=== PATIENT | female | born 1980 | race Two or more races ===

== ENCOUNTER 2024-03-20 18:42 | Outpatient (REF) | payer BC, SELFPAY ==
--- OUTSIDE RECORDS SUMMARY | 2024-03-20 18:45 | XMS_ITS | Continuity of Care Document ---
Author Organization [facility] Address [address] [place] [address] Encounter [facility] Date(s): 11/19/22 - 11/19/22 [facility] [address] [place] [address] Discharge Disposition: Home or Self Care Attending Physician: Nicci Fbaian Admitting Physician: Nicci Fabian Results Laboratory List Name Date Comprehensive Metabolic Panel 11/19/22 D-Dimer 11/19/22 NT- Pro BNP 11/19/22 TSH w/ Rflx to Free T4 11/19/22 Most recent to oldest [Reference Range]: 1 BUN [7-18 mg/dL] 13 mg/dL (11/19/22 1:49 PM) Glucose Level [74-106 mg/dL] 93 mg/dL (11/19/22 1:49 PM) Potassium Level [3.5-5.1 mmol/L] 3.9 mmo l/L (11/19/22 1:49 PM) AST [15-37 unit/L] 24 unit/L (11/19/22 1:49 PM) ALT [14-59 unit/L] 46 unit/L (11/19/22 1:49 PM) Sodium Level [136-145 mmol/L] 139 mmol/L (11/19/22 1:49 PM) Calcium Level [8.5-10.1 mg/dL] 8.9 mg/dL (11/19/22 1:49 PM) Albumin Level [3.4-5.0 g/dL] 3.7 g/dL (11/19/22 1:49 PM) Protein Total [6.4-8.2 g/dL] 7.0 g/dL (11/19/22 1:49 PM) Bilirubin Total [0.2-1.0 mg/dL] 0.4 mg/d L (11/19/22 1:49 PM) Alk Phos [46-146 unit/L] 95 unit/L (11/19/22 1:49 PM) CO2 [21-32 mmol/L] 25 mmol/L (11/19/22 1:49 PM) TSH [0.358-3.740 mcIntlUnit/mL] 0.695 mc IntlUnit/mL (11/19/22 1:49 PM) eGFR Non-AA [>=60] 114 (11/19/22 1:49 PM) eGFR AA [>=60] 114 (11/19/22 1:49 PM) NT-proBNP [0-125 pg/mL] 74 pg/mL (11/19/22 1:49 PM) Chloride Level [98-107 mmol/L] 103 mmol/ L (11/19/22 1:49 PM) Creatinine Level [0.55-1.02 mg/dL] 0.60 mg/dL (11/19/22 1:49 PM) D Dimer, (Quant.) [0.00-0.50 mg/L] 0.27 mg/L 1 (11/19/22 1:49 PM) 1Interpretive Data: Exclusion of PE: Effective January 26, 2012 a new D-Dimer assay [AudioCaseFiles] is being implemented, this test has a new reference range <0.50 mg/L FEU. This assay was evaluated in a multi-center study to validate the exclusion of PE using fresh specimens collected from 701 consecutive patients presenting in the ED with suspected PE. Study patients were evaluated using the Wells' rules to estimate high, moderate or low probability of PE, a D-Dimer result of <0.50 mg/L FEU was considered negative and a D-Dimer result >/= 0.50 was considered positive for PE.
--- OUTSIDE RECORDS SUMMARY | 2024-03-20 18:45 | XMS_ITS | Continuity of Care Document ---
Author Organization [facility] Address [address] [place] [address] Encounter [facility] Date(s): 11/20/22 - 11/20/[address] [address] Discharge Disposition: Home or Self Care Attending Physician: Jenny Jackson PA-C Admitting Physician: Jenny Jackson PA-C Assessment and Plan Diagnostic Tests Pending * Throat Culture 11/20/22
--- OUTSIDE RECORDS SUMMARY | 2024-03-20 18:45 | XMS_ITS | Data Portability ---
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 No streaking or crepitus. On exam appears to be a dermatitis that got infected s/p skin barrier interruption from scratching. At this time recommend cephalexin for acute infection, in the future and for other lesions/itching begin triamcinolone, cetirizine at night before bed for itching. Attempt to look for triggers of dermatitis. FU with PCP or derm if sxs persist. RTC sooner for streaking/spread ing of rednes or puruelnt drainage, fever. She understands and agrees. Pt also with intertrigo underneath stomach pannus, begin clotrimazole cream BID, keep area dry, cotton clothing Monitor and seek additional medical care in the case of any redness, increased pain, swelling, discharge, fever, numbness or tingling. Pt understands and agrees. [email or web address] Not available 03/28/2023 08:31:39 10/26/2023 10/26/2023 The total time devoted to today's encounter, including both the uvbh-xz-jumz time with the patient and/or family/caregiver and evx-qqme-bv-face time I personally spent is 60 minutes. Not available 10/26/2023 13:31:52 01/23/2024 01/23/2024 Patient seen by myself and MEDIA MARKETING COORDINATOR Student Emely Harrell. I agree with documentation Not available 01/23/2024 16:56:53 03/20/2024 03/20/2024 The total time devoted to today's encounter, including both the yptw-yl-dsoz time with the patient and/or family/caregiver and fdx-szhr-qu-face time I personally spent is 30 minutes. Not available 03/20/2024 10:35:37 Plan of Treatment Reminders Order Date Submit Date Provider Last Modified By Organization Details Last Modified Time Details Appointments Follow Up 30 2023 08:30A M MIKAELAKEVIN RIOS Not available Not available Not available [place] [facility] 60 2023 04:00P M DALIA CARBALLO Not available Not available Not available Lab BMP, serum or plasma [address] [facility], [address], [place], [address], 03/20/2024 09:22:29 Referral nutrition ist/dieti jessica referral 2023 024 [facility] Piece Goods Clerk-Oswaldo Preciado, [address], [place], [address], 11/25/2023 09:53:36 Procedures None recorded. Surgeries None recorded. Imaging None recorded. Medication Orders clotrimaz ole 1 % topical cream 2022 023 [id number], [address], [facility] [address], [place], [id number], 03/26/2023 13:06:30 cephalexi n 500 mg capsule 2022 024 [facility], [address] [facility], [facility] [address], [place], [place], [id number], 08/01/2023 12:10:43 triamcino lone acetonide 0.1 % topical cream 2022 023 [facility] #63740, [address], [place], [place], [id number], 03/26/2023 13:06:31 cetirizin e 10 mg tablet 2022 024 [facility] #83970, [address], [address], [place], [place], [id number], 10/26/2023 09:15:37 amoxicill in 875 mg-potass ium clavulana te 125 mg tablet 2023 024 [email or web address] [facility] #29204, [address], [facility] [address], [place], [place], [id number], 10/26/2023 09:15:17 Wegovy 1 mg/0.5 mL subcutane ous pen injector 2023 024 [email or web address] [facility] #57259, [address], [address], [place], [place], [id number], 03/08/2024 11:38:50 Patient TargetsNo targets recorded. Patient Instructions Encounter Date Encounter Id Patient Instructions Last Modified By Organization Details Last Modified Time 10/26/2023 [id number] Please read the information about Wegovy, and the Zepbound if you decide you would like to try this medication, let me know and I will send in rx, you will need to make an appointment with katarzyna Buitrago for your first injection. Don't forget that life is complicated and that your health is multifactorial and affected by everything Watch your salt intake I think you are probably perimenopausal. Counseling is available with Mariel Carballo here at the clinic I referred you to nutrition, you should be hearing from [facility] to have that scheduled You will need a colonoscopy age 44 Follow up 3 months Not available 10/26/2023 10:08:08 01/23/2024 [id number] diet Not available 01/22 16:56:54 exercise Not available 2023 16:56:54 Try to reduce sa lt in your diet. Using compression stockings and elevating your feet is another way to manage the swelling in your legs. Please set up an appointment with Izzy Carballo regarding all the changes in your life and the relationships in your life. We are increasing your Ozempic to 1 mg weekly. Please let us know if you have any increased side effects or constipation on this dose. [email or web address] Not available 01/23/2024 14:44:23 03/20/2024 [id number] Continue for at least four weeks on the 1.7 mg mg Wegovy and if we don't see weight loss by then. Lets switch to zepbound. FInd a load tester and get pap done and ask about HRT or starting OCP. Can go to Dr. Gonzalez or Caren López or [facility] in [facility]. 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 [email or web address] Not Available 09:37:54 11/25/19 24 09/10/2021 MAMMO , felicia dexter, bilalyssa eral No observ ation record ed. [email or web address] Not Available 09:44:53 11/28/19 24 11/09/2023 mg mammo lourdes felicia dexter bilat -M2 HISTOR Y: Suzy cochran is 43 years old and is being seen for screen ing. The suzy cochran has no person al histor y of cancer . The suzy cochran has the follow ing family histor y of breast cancer : grandm other, breast cancer . FILMS COMPAR ED: The presen t examin ation has been compar ed to a prior imagin g study perfor med at [facility] on [facility]. MAMMOG DARLENE FINDIN GS: The follow ing mammog raphic views were obtain ed: bilate ral cranio caudal , bilate ral cranio caudal with tomosy nthesi s, bilate ral mediol ateral obliqu e, bilate ral mediol ateral obliqu e with tomosy nthesi s. There are scatte red fibrog landul ar densit ies. There is an asymme tric densit y seen in the MLO view only seen in the superi or left breast . In the right breast , no suspic ious masses , calcif icatio ns or other abnorm alitie s are seen. IMPRES KWAN: Asymme tric densit y in the left breast requir es additi onal evalua tion. Additi onal projec tions (left mediol ateral obliqu e spot compre ssion with tomosy nthesi s and left 90 degree mediol ateral spot compre ssion with tomosy nthesi s) are recomm ended. BI-RAD S CATEGO RY: 0 Need additi onal imagin g evalua tion. This examin ation underw ent CAD evalua tion utiliz ing R2 Versio n 2.4.0. 12. Report Signed by: TREVOR DAHL M.D. on 2023 16:15: [address], [place], [address], 11/29/2023 16:39:02 12/02/19 24 12/02/2023 MAMMO , diagn ostic , tomos ynthe sis, unila teral HISTOR Y: Suzy cochran is 43 years old and is being seen for follow -up at short- interv al from prior study and abnorm al mammog raphic findin g in the left breast . The suzy t has no person al histor y of cancer . The patien t has the follow ing family histor y of breast cancer : grandm other, breast cancer . FILMS COMPAR ED: The presen t examin ation has been compar ed to prior imagin g [facility]ie [facility] and at [facility] on 2021. MAMMOG DARLENE FINDIN GS: The follow ing mammog raphic views were obtain ed: left cranio caudal , left mediol ateral obliqu e, left mediol ateral obliqu e spot compre ssion with tomosy nthesi s, and left 90 degree mediol ateral spot compre ssion with tomosy nthesi s. There are scatte red fibrog landul ar densit ies. Additi onal evalua tion was perfor med for the asymme tric densit y in the left breast , superi or seen on 2023. No suspic ious masses , calcif icatio ns or other abnorm alitie s are seen. The questi oned findin g desupe rimpos es with additi onal views IMPRES KWAN: There is no mammog raphic eviden ce of malign devaughn. Routin e follow -up mammog darlene in 1 year is recomm ended. BI-RAD S CATEGO RY: 1 Negati ve This examin ation underw ent CAD evalua tion, utiliz ing R2 versio n 2.4.0. 12. Report Signed by: TREVOR DAHL M.D. on 2023 15:28: 12 [email or web address] [facility] [address], [place], [address], 12/09/2023 15:38:58 Result Notes Documentation Provider Name and Address Organization Details Recorded Time Mammo, Diagnostic, Tomosynthesis, Unilateral : HISTORY: Patient is 43 years old and is being seen for follow-up at short-interval from prior study and abnormal mammographic finding in the left breast. The patient has no personal history of cancer. The patient has the following family history of breast cancer: grandmother, breast cancer. FILMS COMPARED: The present examination has been compared to prior imaging studies performed at [facility] on 11/09/2023, and at [facility] on 09/10/2021. MAMMOGRAM FINDINGS: The following mammographic views were obtained: left craniocaudal, left mediolateral oblique, left mediolateral oblique spot compression with tomosynthesis, and left 90 degree mediolateral spot compression with tomosynthesis. There are scattered fibroglandular densities. Additional evaluation was performed for the asymmetric density in the left breast, superior seen on 11/09/2023. No suspicious masses, calcifications or other abnormalities are seen. The questioned finding desuperimposes with additional views IMPRESSION: There is no mammographic evidence of malignancy. Routine follow-up mammogram in 1 year is recommended. BI-RADS CATEGORY: 1 Negative This examination underwent CAD evaluation, utilizing R2 version 2.4.0.12. Report Signed by: TREVOR DAHL M.D. on 12/02/2023 15:28:12 LEXX olsen, [facility] 12/09/2023 15:38:58 Problems Name Problem SNOMED Code Status Onset Date Resolution Date Notes Provider Name and Address Organization Details Recorded Time Edema 107332123 Active 2022 Problem Code: R60.9; Problem Code Type: ICD-10; Not Available [facility] 3 06:00:33 Contact dermatit is caused by plants Active 2022 Problem Code: L25.5; Problem Code Type: ICD-10; Not Available [facility] 3 06:00:33 Acute pharyngi tis 738682412 Completed 202211/27/2022 Problem Code: J02.9; Problem Code Type: ICD-10; Not Available [facility] 3 06:00:33 Attentio n deficit hyperact ivity disorder 366326499 Active 2023 TIFFANIE WATKINS MA null, [facility] 4 08:00:23 Obesity 351044720 Active [address], [place], [address] , [facility] 4 09:57:54 Irregula r periods 59758136 Active [address], [place], [address] , [facility] 09:58:37 Asymmetr ic breast tissue 751134129 Active [address], [place], [address] , [facility] 16:39:27 Hyperten sive disorder 02158531 Active [address], [place], [address] , [facility] 16:53:07 Pain of bilatera l knee joints 02225951434 4104 Active [address], [place], [address] , [facility] 16:53:07 Edema of lower extremit y 296112171 Active [address], [place], [address] , [facility] 16:53:07 Problem Notes None recorded. Procedures Surgical History None recorded. Imaging Results Imaging Date Name Status LastModified by Organiz ation Details LastModified Time 01/18/2019 US, doppler, venous completed Information not available 11/25/2023 09:37:54 09/10/2021 MAMMO, screening, bilateral completed Information not available 11/25/2023 09:44:53 11/09/2023 mg mammo lourdes screening bilat-M2 completed [facility] [address], [place], [address], 11/29/2023 16:39:02 12/02/2023 MAMMO, diagnostic, tomosynthesis, unilateral completed [email or web address] [facility] [address], [place], [address], 12/09/2023 15:38:58 Procedure Notes None recorded. Medical Equipment None Reported. Allergies No known drug allergies Medications Name Sig Start Date Stop Date Status Note LastModified by Organization Details LastModified Time cetirizin e 10 mg tablet Take 1 tablet every day by oral route at bedtime for 30 days. 10/25 completed pt reports not taking Not Available Not Available Not Available chlorthal idone 25 mg tablet TAKE 1 TABLET BY MOUTH DAILY active Not Available Not Available No t Available triamcino lone acetonide 0.1 % topical cream APPLY TO THE AFFECTED AREA TWICE A DAY active Not Available Not Available No t Available cephalexi n 500 mg capsule Take 1 capsule every 6 hours by oral route for 7 days. 07/31 completed Not Available Not Available Not Available hydrochlo rothiazid e 25 mg tablet TAKE 1 TABLET BY MOUTH EVERY DAY FOR BLOOD PRESSURE OR SWELLING . 10/25 completed pt reports not taking Not Available Not Available Not Available clotrimaz ole 1 % topical cream APPLY TOPICALL Y TO THE AFFECTED AND SURROUND ING AREAS TWICE DAILY IN THE MORNING AND IN THE EVENING active Not Available Not Available No t Available amoxicill in 875 mg-potass ium clavulana te 125 mg tablet TAKE 1 TABLET BY MOUTH EVERY 12 HOURS FOR 10 DAYS active Not Available Not Available No t Available nitrofura ntoin monohydra te/macroc rystals 100 mg capsule TAKE 1 CAPSULE BY MOUTH TWICE DAILY FOR 7 DAYS 01/22 completed pt reports not taking Not Available Not Available Not Available TechLITE Pen Needle 31 gauge x 09/21 USE 1 PEN NEEDLE ONCE A WEEK WITH WEGOVY active Not Available Not Available No t Available Wegovy 1.7 mg/0.75 mL subcutane ous pen injector INJECT 1.7MG SUBCUTAN EOUSLY EVERY WEEK DIRECTED active Not Available Not Available No t Available Wegovy 1 mg/0.5 mL subcutane ous pen injector INJECT 1 MG UNDER THE SKIN WEEKLY 03/20 completed dose increase Not Available Not Available Not Available Wegovy 0.25 mg/0.5 mL subcutane ous pen injector ADMINIST ER 0.25 MG UNDER THE SKIN WEEKLY FOR 4 WEEKS. INCREASE TO 0.5 MG WEEKLY 12/20 completed went up to next dose Not Available Not Available Not Available Wegovy 0.5 mg/0.5 mL subcutane ous pen injector ADMINIST ER 0.5 MG UNDER THE SKIN 1 TIME WEEKLY 03/20 completed dose increase Not Available Not Available Not Available Vitals Date Recorded Body temperature Oxygen saturation Oxygen saturation in Arterial blood by Pulse oximetry Heart rate Respiratory rate Systolic blood pressure Diastolic blood pressure Provider Name and Address Organization Details Last Updated DateTime 3 97.4 [degF] 98 % 98 % 60 /min 16 /min 110 mm[Hg] 60 mm[Hg] [address], [place], [address], [facility], [facility] 3 12:53:11 Date Recorded Body temperature Body height Oxygen saturation Oxygen saturation in Arterial blood by Pulse oximetry Heart rate Systolic blood pressure Diastolic blood pressure Provider Name and Address Organization Details Last Updated DateTime 4 98.1 [degF] 162.56 cm 100 % 100 % 82 /min 114 mm[Hg] 78 mm[Hg] JAMISON Monsalve MA [facility] 4 12:08:50 Date Recorded Body height Body mass index (BMI) Body weight Oxygen saturation Oxygen saturation in Arterial blood by Pulse oximetry Heart rate Systolic blood pressure Diastolic blood pressure Provider Name and Address Organization Details Last Updated DateTime 4 165.61 cm 40.4 kg/m2 983077. 98 g 95 % 95 % 80 /min 116 mm[Hg] 72 mm[Hg] TIFFANIE WATKINS MA [facility], [facility] 4 09:14:53 Date Recorded Body height Body mass index (BMI) Body weight Oxygen saturation Oxygen saturation in Arterial blood by Pulse oximetry Heart rate Systolic blood pressure Diastolic blood pressure Provider Name and Address Organization Details Last Updated DateTime 4 165.61 cm 38.3 kg/m2 418557. 99 g 95 % 95 % 90 /min 114 mm[Hg] 64 mm[Hg] TIFFANIE WATKINS MA [facility], [facility] 4 14:10:35 Date Recorded Body height Body mass index (BMI) Body weight Oxygen saturation Oxygen saturation in Arterial blood by Pulse oximetry Heart rate Systolic blood pressure Diastolic blood pressure Provider Name and Address Organization Details Last Updated DateTime 4 165.61 cm 38.1 kg/m2 244107. 35 g 95 % 95 % 84 /min 132 mm[Hg] 74 mm[Hg] YEIMI CONTRERAS RN [facility] 08:35:48 Social History Question Answer Notes LastModified by Organizat ion Details LastModified Time Tobacco Smoking Status Former Smoker STARLA HOLLIS, [facility] 10/26/2023 09:16:06 What Type Of Diet Are You Following? 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 7 Information not available 11/03/2023 How Many Times Per Week Do You Exercise? 5-7 Times Per Week Information not available 11/03/2023 When Did You Quit Smoking? 15+yearssin james holman [email or web address] Information not available 10/26/2023 Date Care Plan Printed: 11/03/2023 Information not available 11/15/2023 Assigned Communications Officer: Viola Buitrago Information not available 11/03/2023 Is [facility] The Lead Communications Officer? Yes Information not available 11/03/2023 Level Of Intensity: Bi-Annually Information not available 11/03/2023 Team Based Care: Yes Information not available 11/03/2023 Providers Yes Information no t available 11/03/2023 Other Support System Yes Community Health Team; Injection Support Team Information not available 11/03/2023 How Much Tobacco Do You Smoke? 1 PPW Information not available 10/26/2023 How Many Years Have You Smoked Tobacco? 2 [email or web address] Information not available 10/26/2023 Do You Have Any Dietary Restrictions ? No Information not available 11/03/2023 Sex: Female Functional Status Question Answer Note LastModified by Organization D etails LastModified Time What is your exercise level? Moderate Information not available 11/03/2023 Mental Status None recorded. Family History Nothing Reported. Medical History No medical history recorded. Gynecological HistoryNo gynecological history recorded. Obstetrics History GPAL:G 0 P 0 0 0 0 Past Encounters Encounter ID Performer Location Encounter Start Date Encounter Closed Date Diagnosis/Indication Diagnosis SNOMED-CT Code Diagnosis ICD10 Code [id number] Heather Schultz PA-C [address] [address] 03/26/2023 11:52:35 03/26/2023 13:08:50 Cellulitis of lower limb 717926454 L03.119 Atopic dermatitis 320210 01 L20.9 Intertrigo 47147746 L30. 4 [id number] IVY MONDRAGON PA-C [address] [address] 08/01/2023 11:53:46 08/01/2023 12:33:44 Acute sinusitis 81415352 J01.[id number] [address] 10/26/2023 09:00:04 10/26/2023 10:45:51 Obesity 208678070 E66.9 Irregular periods 343515 07 N92.6 Edema 605914809 R60.9 Attention deficit hyperactivity disorder 862392465 F90.[id number] [address] 01/23/2024 14:04:13 01/23/2024 14:50:55 Attention deficit hyperactivity disorder 779785204 F90.9 Obesity 532369463 E66.9 Perimenopausal state 839 5417482 18798 Z78.0 Edema of l ower extremity 299887878 R60.0 Hypertensive disorder 38 117992 I10 Relationship problem 160 654943 Z63.9 Pain of bi lateral knee joints 7173225394 09504 M25.[id number] [place] [address] 03/20/2024 08:28:38 03/20/2024 10:26:49 Attention deficit hyperactivity disorder 386076517 F90.9 Obesity 120395728 E66.9 Active or passive immunization 402585567 Z23 Hypertensive disorder 38 676057 I10 Perimenopausal state 336 2807178 43893 Z78.0 Goals Section Goal Description Status Start Date LastModified by Organization Details LastModified Time Weight Loss Decreases body weight as per care team recommendatio n(s): Lose 5-7% Weight with Diet, Activity, & Medication. Starting Weight is 244# - Short Term Lose 12-15 pounds in 3 months (January 2024). - Long-Term: Lose 45 pound (Be Less than 200#; No date set) Goal not achieved 024 VIOLA BLINDOW Information not available 01/17/2024 20:07:33 Medication Regimen Follows medication regimen as per care team recommendatio n(s) Goal not achieved 024 VIOLA BLINDOW Information not available 01/17/2024 20:08:57 Health Concerns Section Related Observation LastModified by Organization Detai ls LastModified Time None Recorded Concern Status LastModified by Organization Details LastModified Time Obesity Active VIOLA BLINDOW Not Available 11/02 19:30:03 Advance Directives Directive None Recorded Payers Encounter Date Sequence Insurance Name Policy Number Policy Causey Covered Member ID Causey Member ID Guarantor Name 03/26/2023 2 [place] Nicci Saenz Janay [id number] Nicci Letty Koss 08/01/2023 1 [place] Nicci Saenz Manuels [id number] Nicci S Koss 10/26/2023 1 [place] Nicci Saenz Koss [id number] Nicci S Koss 01/23/2024 1 [place] Nicci Saezn Koss [id number] Nicci S Koss 03/20/2024 1 [place] Nicci Gustafson [id number] Nicci Gustafson Notes Date Note Type Note Provider Name and Address Organization Details Recorded Time 03/26/2023 text/html HPI Notes: Pt is a 42 y/o F with 1 week of worsening rash on her lower right anterior leg that started out as red and itchy for about 8 weeks, is now hot, red, painful, hard. She denies any discharge or injury to the area. States there are with similar spot on her leg that appears and have skin bubbling but are not as bad as this one. Also complaining of red rash under stomach that is itchy. Heather Schultz PA-C [address], [place], [address], [facility]. 03/28/2023 08:31:44 08/01/2023 text/html HPI Notes: Kris loera is a 43-year-old female presenting for question of sinus infection. For the past 3 weeks has had left-sided is sinus pain and congestion. Has had a runny nose. Sinus pain with associated headache. Symptoms wax and wane in intensity, very uncomfortable 2 days ago slightly better yesterday and then back today. No fevers or chills. No coughing or wheezing. Denies sore throat. No known sick contacts. No history of frequent sinus infections. IVY MONDRAGON PA-C [address], [place], [address], [facility]. 08/01/2023 12:29:10 10/26/2023 text/html HPI Notes: cc ne w patient Lives in [place], has two pigs, chickens, ducks, turkey. 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 had vasectomy. Is feeling more pessimistic over the past two years. Feels anxious, has financial concerns Weight gain - has gained about 50 pounds in the past year. Dr. Hammond checked her Thyroid on October 12 knee pain and leg swelling - both knees terrible with driving. Has to support her legs when she is driving just 25 miles. No trauma, has pain going down stairs in the morning. rash - recurrent on her lower leg. Dr. Hammond diagnosed her with HTN and started Chlorthalidone which she stopped taking a couple of weeks ago. Was tested for diabetes and blood clots which were negative Gets shoulder and neck pain. Does a lot of heavy lifting of pets/feed/slop. MIKAELA RIOS, MEDIA MARKETING COORDINATOR [address], [place], [address], [facility]. 10/27/2023 15:00:26 01/23/2024 text/html HPI Notes: cc: obesity, ADHD, HTN, perimenopausal state, edema of lower extremity, and relationship issues. HTN: Continues on chlorthalidone 25 mg each day. Blood pressure is well controlled LE swelling: Swelling is the same, has not improved. Likes to eat salt, she doesn't salt food at the table, but likes to cook with salt. She is not using compression stockings. 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 Perimenopausal: She recently went 48 days without a period. Last summer her cycle was 31-35 days. Then over the winter she was having a cycle every 28 days. Having occasional hot flashes, but has often felt warm throughout her life. Relationship issues. Many changes in her life including an empty nest, moving to [place], and having difficulty connecting with . Obesity Is using Wegovy at this time for weight loss. Has lost 14 pounds on the Wegovy; now on the 0.5 mg weekly dosage. ADHD Not on any medications for ADHD. Has used Strattera and Vyvanse in the past. Not interested in starting medication management at this time Knee pain. Knee pain is improving with weight loss. Pain on the inside part of her knees, sometimes knees are painful to touch. She had been told that she had bursitis in the past . Emely olsen, [facility], [facility]. 01/23/2024 16:58:26 03/20/2024 text/html HPI Notes: ADHD Reported by patient. Notes: Overall doing ok, school is great. Never connected with Mariel and isn't sure how that would work during her school day, would consider seeing her this summer Overweight/Obese Reported by patient. Notes: Continues on Wegovy, now on 1.7 mg weekly. No nausea, no constipation, moves bowels daily. No belly pain. Feels like her belly is just big, has had no additional significant weight loss cc follow up chronic issues, Obesity, Edema, adhd Things are going ok. Edema - continues to have intermittent edema, has gone up a shoe size. Knee pain is better HTN - continues on chlorthalidone, due for bmp Perimenopause - decreased libido, due for PAP this year, has a 39- 45 day cycle, not super heavy. feels her weight gain is worst around her middle. MIKAELA RIOS, MEDIA MARKETING COORDINATOR [address], [place], [address], [facility], [facility]. 03/20/2024 10:35:52 OBGyn Episode No OBEpisode recorded.
--- OUTSIDE RECORDS SUMMARY | 2024-03-20 18:45 | XMS_ITS | Continuity of Care Document ---
Author Organization [facility] Address [address] [place] [address] Care Team Providers Care Adoption Coordinator Name Role Phone Ronnelljj Mikaela H Primary Care Physician [phone] Encounter [place] Date(s): 11/09/23 - 11/09/[address] [address] [place] Encounter Diagnosis Screening for breast cancer(Discharge Diagnosis) - 11/09/23 Discharge Disposition: Home or Self Care Attending Physician: Sameera Hammond MD Admitting Physician: Sameera Hammond MD Referring Physician: Sameera Hammond MD Assessment and Plan Future Appointments Future Scheduled Tests Laboratory* Urinalysis Notify Lab 09/13/23 Medications amoxicillin-clavulanate 875 mg-125 mg oral tablet 0 Refill(s), 0 Refill(s) Start Date: 07/31/23 Status: Ordered cephalexin 500 mg oral capsule 0 Refill(s), 0 Refill(s) Start Date: 03/25/23 Status: Ordered cetirizine 10 mg oral tablet 0 Refill(s), 0 Refill(s) Start Date: 03/25/23 Status: Ordered chlorthalidone 25 mg oral tablet 25 mg = 1 tab, Oral, Daily, # 90 tab, 3 Refill(s), Pharmacy: [facility] #[id number], 165.1, cm, 09/26/23 12:01:00 EDT, Height, 113.85, kg, 09/26/23 12:17:00 EDT, Weight Dosing Start Date: 09/26/23 Status: Ordered clotrimazole 1% topical cream 0 Refill(s), 0 Refill(s) Start Date: 03/25/23 Status: Ordered hydroCHLOROthiazide 25 mg oral tablet 0 Refill(s), 0 Refill(s) Start Date: 11/18/22 Status: Ordered Macrobid 100 mg oral capsule 100 mg = 1 cap, Oral, BID, # 14 cap, 0 Refill(s), Pharmacy: [facility] #[id number], 114.4, kg,09/13/23 15:23:00 EDT, Weight Dosing Start Date: 09/13/23 Stop Date: 09/20/23 Status: Ordered triamcinolone 0.1% topical cream 0 Refill(s), 0 Refill(s) Start Date: 03/25/23 Status: Ordered triamcinolone 0.1% topical cream 1 era, Topical, BID, # 454 g, 3 Refill(s), Pharmacy: [facility] #[id number], 165.1, cm, 09/26/23 12:01:00 EDT, Height, 113.85, kg, 09/26/23 12:17:00 EDT, Weight Dosing Start Date: 09/26/23 Status: Ordered Problem List Condition Confirmation Course Effective Dates Status Health St atus Informant Acute pharyngitis 1 Confirmed 11/20/22 Active Contact dermatitis caused by plants 2 Confirmed 11/19/22 Active Edema 3 Confirmed 11/19/22 Active Annual physical exam Confirmed Active 1Outside Source Comment: Problem Code: J02.9; Problem Code Type: ICD-10; 2Outside Source Comment: Problem Code: L25.5; Problem Code Type: ICD-10; 3Outside Source Comment: Problem Code: R60.9; Problem Code Type: ICD-10; Procedures Procedure Date Related Diagnosis Body Site Status Mammogram 09/05/21 Completed Social History Social History Type Response Tobacco Former tobacco user Tobacco Use:. 1 Sex 1quit 1998 Patient Care team information Care Team Personnel Name: Mikaela Rios RUBBER MOULDING MACHINE OPERATOR Position: PowerChart View Only Member Role: Primary Care Physician Address: Address: [address] [place] [address] [place] Name: Jenny Jackson PA-C Position: No Access Member Role: Informed Provider Address: Address: [address] [place] [address] [place] Care Team Related Persons Name: MELANIE MATHIAS Name: HATTIE VELAZQUEZ Address: Home [address] [place], [place] [phone] Name: ATTILA DEL ROSARIO Address: Home [address] [place] [phone]
--- OUTSIDE RECORDS SUMMARY | 2024-03-20 18:45 | XMS_ITS | Continuity of Care Document ---
Author Organization [facility] Address [address] [place] [address] Care Team Providers Care Foreign Policy Officer Name Role Phone Sameera Hammond Primary Care Physician Encounter [place] Date(s): 09/26/23 - 09/26/23 [facility] [address] [place] [address] Discharge Disposition: Home Assessment and Plan Future Appointments Future Scheduled Tests Laboratory* Urinalysis Notify Lab 09/13/23 Radiology* MG Mammo Screening Bilateral w/ Victoriano 09/26/23 Medications amoxicillin-clavulanate 875 mg-125 mg oral tablet 0 Refill(s), 0 Refill(s) Start Date: 07/31/23 Status: Ordered cephalexin 500 mg oral capsule 0 Refill(s), 0 Refill(s) Start Date: 03/25/23 Status: Ordered cetirizine 10 mg oral tablet 0 Refill(s), 0 Refill(s) Start Date: 03/25/23 Status: Ordered chlorthalidone 25 mg oral tablet 25 mg = 1 tab, Oral, Daily, # 90 tab, 3 Refill(s), Pharmacy: [facility] #[id number], 165.1, cm, 09/26/23 12:01:00 EDT, Height, 113.85, kg, 09/26/23 12:17:00 EDT, Weight Dosing Start Date: 09/26/23 Status: Ordered clotrimazole 1% topical cream 0 Refill(s), 0 Refill(s) Start Date: 03/25/23 Status: Ordered hydroCHLOROthiazide 25 mg oral tablet 0 Refill(s), 0 Refill(s) Start Date: 11/18/22 Status: Ordered Macrobid 100 mg oral capsule 100 mg = 1 cap, Oral, BID, # 14 cap, 0 Refill(s), Pharmacy: [facility] #[id number], 114.4, kg,09/13/23 15:23:00 EDT, Weight Dosing Start Date: 09/13/23 Stop Date: 09/20/23 Status: Ordered triamcinolone 0.1% topical cream 0 Refill(s), 0 Refill(s) Start Date: 03/25/23 Status: Ordered triamcinolone 0.1% topical cream 1 era, Topical, BID, # 454 g, 3 Refill(s), Pharmacy: [facility] #[id number], 165.1, cm, 09/26/23 12:01:00 EDT, Height, 113.85, [...] Care team information Care Team Personnel Name: Sameera Hammond MD Position: Physician Member Role: Primary Care Physician Address: Address: [address] [address] Name: Jenny Jackson PA-C Position: No Access Member Role: Informed Provider Address: Address: [address] [place] [address] Care Team Related Persons Name: MELANIE MATHIAS Name: HATTIE VELAZQUEZ Address: Home [address] [place], [place] [phone] Name: ATTILA DEL ROSARIO Address: Home [address] [place] [phone]
--- OUTSIDE RECORDS SUMMARY | 2024-03-20 18:45 | XMS_ITS | Continuity of Care Document ---
Author Organization [facility] Address [address] [place] [address] Care Team Providers Care Branch Operations Coordinator Name Role Phone Mikaela Rios Primary Care Physician Encounter [place] Date(s): 12/02/23 - 12/02/[address] [address] [place] Encounter Diagnosis Breast density(Discharge Diagnosis) - 12/02/23 Discharge Disposition: Home or Self Care Attending Physician: Sameera Hammond MD Admitting Physician: Sameera Hammond MD Referring Physician: Sameera Hammond MD Assessment and Plan Future Scheduled Tests Laboratory* Urinalysis Notify Lab [...] Daily, # 90 tab, 3 Refill(s), Pharmacy: [facility] #[id number], 165.1, cm, 09/26/23 12:01:00 EDT, Height, 113.85, kg, 09/26/23 12:17:00 EDT, Weight Dosing Start Date: 09/26/23 Status: Ordered clotrimazole 1% topical cream 0 Refill(s), 0 Refill(s) Start Date: 03/25/23 Status: Ordered hydroCHLOROthiazide 25 mg oral tablet 0 Refill(s), 0 Refill(s) Start Date: 11/18/22 Status: Ordered Macrobid 100 mg oral capsule 100 mg = 1 cap, Oral, BID, # 14 cap, 0 Refill(s), Pharmacy: [facility] #[id number], 114.4, kg,09/13/23 15:23:00 EDT, Weight Dosing Start Date: 09/13/23 Stop Date: 09/20/23 Status: Ordered triamcinolone 0.1% topical cream 0 Refill(s), 0 Refill(s) Start Date: 03/25/23 Status: Ordered triamcinolone 0.1% topical cream 1 era, Topical, BID, # 454 g, 3 Refill(s), Pharmacy: [facility] #[id number], 165.1, cm, 09/26/23 12:01:00 EDT, Height, 113.85, [...] information Care Team Personnel Name: Mikaela Rios WALLPAPER CLEANER Position: PowerChart View Only Member Role: Primary Care Physician Address: Address: [address] [place] [address] Name: Jenny Jackson PA-C Position: No Access Member Role: Informed Provider Address: Address: [address] [place] [address] Care Team Related Persons Name: MELANIE MATHIAS Name: HATTIE VELAZQUEZ Address: Home [address] [place], [place] [phone] Name: ATTILA DEL ROSARIO Address: Home [address] [place] [phone]
--- OUTSIDE RECORDS SUMMARY | 2024-03-20 18:45 | XMS_ITS | Continuity of Care Document ---
Author Organization [place] [facility] Address [address] [place] [address] Care Team Providers Care Facility Engineer Name Role Phone TOÑO DIEHL Primary Care Provider BUITRAGO KATHLEEN Head Librarian [facility] DIVER-CAMILLE MACK Slip Sheeter/Nutritioni st Assessment Encounter Date Assessment Date Assessment LastModified by Organization Details LastModified Time 03/20/2024 03/20/2024 The total time devoted to today's encounter, including both the ekqq-ht-kmvl time with the patient and/or family/caregi yuly and zoi-vyuc-jm-f amy time I personally spent is 30 minutes. Not available 03/20/2024 10:35:37 Plan of Treatment Reminders Order Date Submit Date Provider Last Modified By Organization Details Last Modified Time Details Appointments Follow Up 30 2023 08:30A M TOÑO DIEHL Not available Not available Not available Counselin g 60 2023 04:00P M DALIA CARBALLO Not available Not available Not available Lab BMP, serum or plasma 2023 024 [facility], [address], [place], [address], 03/20/2024 09:22:29 Referral None recorded. Procedures None recorded. Surgeries None recorded. Imaging None recorded. Medication Orders None recorded. Patient TargetsNo targets recorded. Patient Instructions Encounter Date Encounter Id Patient Instructions Last Modified By Organization Details Last Modified Time 03/20/2024 [id number] Continue for at least four weeks on the 1.7 mg mg Wegovy and if we don't see weight loss by then. Lets switch to zepbound. FInd a grooming salon manager and get pap done and ask about HRT or starting OCP. Can go to Dr. Gonzalez or Caren López or [facility] in [facility]. I will send you a letter with the results of your lab work Not available 03/20/2024 08:56:28 Reason for Referral None Reported. Problems Name Problem SNOMED Code Status Onset Date Resolution Date Notes Provider Name and Address Organization Details Recorded Time Edema 382936208 Active 2022 Problem Code: R60.9; Problem Code Type: ICD-10; Not Available [facility] 3 06:00:33 Contact dermatit is caused by plants Active 2022 Problem Code: L25.5; Problem Code Type: ICD-10; Not Available [facility] 3 06:00:33 Acute pharyngi tis 165675879 Completed 202211/27/2022 Problem Code: J02.9; Problem Code Type: ICD-10; Not Available [facility] 3 06:00:33 Attentio n deficit hyperact ivity disorder 650262279 Active 2023 TIFFANIE WATKINS MA [facility], [facility] 4 08:00:23 Obesity 264567534 Active 2023 [facility] [address], [place], [address] , [facility] 4 09:57:54 Irregula r periods 97536019 Active 2023 [facility] [address], [place], [address] , [facility] 4 09:58:37 Asymmetr ic breast tissue 003631408 Active [address], [facility] [address] , [facility] 4 16:39:27 Hyperten sive disorder 02902229 Active [address], [place], [address] , [facility] 4 16:53:07 Pain of bilatera l knee joints 00285773562 4104 Active [address], [place], [address] , [facility] 4 16:53:07 Edema of lower extremit y 171273138 Active [address], [place], [address] , [facility] 4 16:53:07 Problem Notes None recorded. Medical Equipment None Reported. [...] Available Not Available Vitals Date Recorded Body height Body mass index (BMI) Body weight Oxygen saturation Oxygen saturation in Arterial blood by Pulse oximetry Heart rate Systolic blood pressure Diastolic blood pressure Provider Name and Address Organization Details Last Updated DateTime 4 165.61 cm 38.1 kg/m2 503823. 35 g 95 % 95 % 84 /min 132 mm[Hg] 74 mm[Hg] YEIMI CONTRERAS RN [facility] 08:35:48 Social History Question Answer Notes LastModified by Organizat ion Details LastModified Time Tobacco Smoking Status Former Smoker STARLA HOLLIS, [facility] 10/26/2023 09:16:06 What Type Of Diet Are You Following? REGULAR Following Slip Sheeter's Recommendation With Goal Of Weight Loss Information [...] Did You Quit Smoking? 15+yearssin james holman [id number] Information not available 10/26/2023 Date Care Plan Printed: 11/03/2023 Information not available 11/15/2023 Assigned Exhibition Carver: Viola Buitrago Information not available 11/03/2023 [facility] The Lead Exhibition Carver? Yes Information not available 11/03/2023 Level Of Intensity: Bi-Annually Information not available 11/03/2023 Team Based Care: Yes Information not available 11/03/2023 Providers Yes Information no t available 11/03/2023 Other Support System Yes Community Health Team; Injection Support Team Information not available 11/03/2023 How Much Tobacco Do You Smoke? 1 PPW [id number] Information not available 10/26/2023 How Many Years Have You Smoked Tobacco? 2 [email or web address] Information not available 10/26/2023 Do You Have [...] Diagnosis/Indication Diagnosis SNOMED-CT Code Diagnosis ICD10 Code [id number] TOÑO DIEHL [address] [address] 03/20/2024 08:28:38 03/20/2024 10:26:49 Attention deficit hyperactivity disorder 506594377 F90.9 Obesity 564569235 E66.9 Active or passive immunization 299883810 Z23 Hypertensive disorder 38 520056 I10 Perimenopausal state 988 1332801 86290 Z78.0 Goals Section Goal Description Status Start Date LastModified by Organization Details LastModified Time Weight Loss Decreases body weight as per care team recommendatio n(s): Lose 5-7% Weight with Diet, Activity, & Medication. Starting Weight is 244# - Short Term Lose 12-15 pounds in 3 months (January 2024). - Long-Term: Lose 45 pound (Be Less than 200#; No date set) Goal not achieved VIOLA BLINDOW Information not available 01/17/2024 20:07:33 Medication Regimen Follows medication regimen as per care team recommendatio n(s) Goal not achieved 024 VIOLA BLINDOW Information not available 01/17/2024 20:08:57 Health Concerns Section Related Observation LastModified by Organization Detai ls LastModified Time None Recorded Concern Status LastModified by Organization Details LastModified Time Obesity Active VIOLA BLINDOW Not Available 11/02 19:30:03 Payers Encounter Date Sequence Insurance Name Policy Number Policy Causey Covered Member ID Causey Member ID Guarantor Name 03/20/2024 1 [place] STANDARD [place] (EPO) Nicci Jacksonprince [id number] Nicci Prince Janay Notes Date Note Type Note Provider Name and Address Organization Details Recorded Time 03/20/2024 text/html HPI Notes: ADHD Reported by [...] weight gain is worst around her middle. TOÑO DIEHL, [facility] [address], [place], [address], [facility]. 03/20/2024 10:35:52 OBGyn Episode No OBEpisode recorded.
--- OUTSIDE RECORDS SUMMARY | 2024-03-20 18:45 | XMS_ITS | Continuity of Care Document ---
Author Organization [facility] Address [address] [place] [address] Care Team Providers Care Supervisor Pipe Finishing Name Role Phone StephanySameera maher Primary Care Physician Encounter [place]CT[place] Date(s): 09/13/23 - 09/13/23 [facility] [address] [place] [address] Discharge Disposition: Home or Self Care Attending Physician: Leandro Crowe Admitting Physician: Leandro Crowe Assessment and Plan Future Appointments Diagnostic Tests Pending * Urinalysis Notify Lab 09/13/23 Future Scheduled Tests Laboratory* Urinalysis Notify Lab 09/13/23 Medications Macrobid 100 mg oral capsule 100 mg = 1 cap, Oral, BID, # 14 cap, 0 Refill(s), Pharmacy: [facility] #[id number], 114.4, kg,09/13/23 15:23:00 EDT, Weight Dosing Start Date: 09/13/23 Stop Date: 09/20/23 Status: Ordered Results Laboratory List Name Date .Urinalysis POCT 09/13/23 Urinalysis Microscopic 09/13/23 Most recent to oldest [Reference Range]: 1 UA WBC [0-3] >100 *ABN* (09/13/23 3:23 PM) UA RBC [0-2] 5-10 (09/13/23 3:23 PM) UA Bacteria Moderate /HPF *ABN* (09/13/23 3:23 PM) UA Mucous None Seen /HPF (09/13/23 3:23 PM) UA Squam Epithelial [None Seen] Rare (09/13/23 3:23 PM) UA Culture Ind?. Indicated (09/13/23 3:23 PM) Method of Collect POC Clean Catch *NA* (09/13/23 3:23 PM) Specific [place], Ur POC 1.020 *NA* (09/13/23 3:23 PM) Specimen Color POC Maria A *NA* (09/13/23 3:23 PM) Glucose, Urine POC [Negative] Trace *ABN* (09/13/23 3:23 PM) Bilirubin, Urine POC [Negative] Negative (09/13/23 3:23 PM) Ketones, Urine POC [Negative] Negative (09/13/23 3:23 PM) Blood, Urine POC [Negative] Small *ABN* (09/13/23 3:23 PM) pH, Urine POC 7 *NA* (09/13/23 3:23 PM) Protein, Urine POC [Negative] 2+ *ABN* (09/13/23 3:23 PM) Urobilinogen, Urine POC Normal (09/13/23 3:23 PM) Nitrite, Urine POC [Negative] Positive *ABN* (09/13/23 3:23 PM) Leuk Esterase, Urine POC [Negative] Larg e *ABN* (09/13/23 3:23 PM) Clarity, Urine POC [Clear] Cloudy *ABN* (09/13/23 3:23 PM) Orders for Microbiology Reports Name Date Urine Culture 09/13/23 Microbiology Reports TEST:Urine Culture STATUS:Order in Progress BODY SITE: SOURCE:Urine COLLECTED DATE/TIME:09/13/23 3:23 PM PRELIMINARY REPORT >100,000 cfu/ml Escherichia coli Susceptibility to follow. Social History Social History Type Response Tobacco Former tobacco user Tobacco Use:. Sex Patient Care team information Care Team Personnel Name: Sameera Hammond MD Position: Physician Member Role: Primary Care Physician Address: Address: [facility] Primary [address] [address]- Name: Jenny Jackson PA-C Position: No Access Member Role: Informed Provider Address: Address: [address] [place] [address] Care Team Related Persons Name: MEY MELANIE Name: HATTIE VELAZQUEZ Address: Home [address] [place], [place] [phone] Name: ATTILA DEL ROSARIO Address: Home [address] [place] [address] Name: ATTILA DEL ROSARIO Address: Home [address] [place] [phone] [place]
--- OUTSIDE RECORDS SUMMARY | 2024-03-20 18:45 | XMS_ITS | Continuity of Care Document ---
Author Organization [facility] Address [address] [place] [address] Care Team Providers Care Environmental Services Aide Name Role Phone Mikaela Rios Primary Care Physician Encounter [place]CT[place] Date(s): 11/29/23 - 11/29/23 [facility] [address] [place] [address] Discharge Disposition: Home Assessment and Plan Future Scheduled Tests Laboratory* Urinalysis Notify Lab 09/13/23 Radiology* MG Mammo Addl Projections Lt w/ Victoriano 11/29/23 Medications amoxicillin-clavulanate 875 mg-125 mg oral tablet 0 Refill(s), 0 Refill(s) Start Date: 07/31/23 Status: Ordered cephalexin 500 mg oral capsule 0 Refill(s), 0 Refill(s) Start Date: 03/25/23 Status: Ordered cetirizine 10 mg oral tablet 0 Refill(s), 0 Refill(s) Start Date: 03/25/23 Status: Ordered chlorthalidone 25 mg oral tablet 25 mg = 1 tab, Oral, Daily, # 90 tab, 3 Refill(s), [id number], 165.1, cm, 09/26/23 12:01:00 EDT, Height, 113.85, kg, 09/26/23 12:17:00 EDT, Weight Dosing Start Date: 09/26/23 Status: Ordered clotrimazole 1% topical cream 0 Refill(s), 0 Refill(s) Start Date: 03/25/23 Status: Ordered hydroCHLOROthiazide 25 mg oral tablet 0 Refill(s), 0 Refill(s) Start Date: 11/18/22 Status: Ordered Macrobid 100 mg oral capsule 100 mg = 1 cap, Oral, BID, # 14 cap, 0 Refill(s), Pharmacy: [facility] #[id number], 114.4, kg,09/13/23 15:23:00 EDT, Weight Dosing Start Date: 09/13/23 Stop Date: 09/20/23 Status: Ordered triamcinolone 0.1% topical cream 0 Refill(s), 0 Refill(s) Start Date: 03/25/23 Status: Ordered triamcinolone 0.1% topical cream 1 era, Topical, BID, # 454 g, 3 Refill(s), Pharmacy: [facility] #[id number], 165.1, cm, 09/26/23 12:01:00 EDT, Height, 113.85, [...] information Care Team Personnel Name: Mikaela Rios RN ORTHOPEDIC Position: PowerChart View Only Member Role: Primary Care Physician Address: Address: [address] [place] [address]- Name: Jenyn Jackson PA-C Position: No Access Member Role: Informed Provider Address: Address: [address] [place] [id number] Care Team Related Persons Name: MELANIE MATHIAS Name: HATTIE VELAZQUEZ Address: Home [address] [place], [place] [phone] Name: ATTILA DEL ROSARIO Address: Home [address] [place] [phone]
--- OUTSIDE RECORDS SUMMARY | 2024-03-20 18:45 | XMS_ITS | Continuity of Care Document ---
Author Organization [facility] Address [address] [place] [address] Care Team Providers Care Dispatch Clerk Name Role Phone Sameera Hammond Primary Care Physician Encounter [facility] Date(s): 09/26/23 - 09/26/23 [facility] [address] [place] [address] Discharge Disposition: Home or Self Care Attending [...] Daily, # 90 tab, 3 Refill(s), Pharmacy: [facility] #[id number], 165.1, cm, 09/26/23 12:01:00 EDT, Height, 113.85, kg, 09/26/23 12:17:00 EDT, Weight Dosing Start Date: 09/26/23 Status: Ordered clotrimazole 1% topical cream 0 Refill(s), 0 Refill(s) Start Date: 03/25/23 Status: Ordered hydroCHLOROthiazide 25 mg oral tablet 0 Refill(s), 0 Refill(s) Start Date: 11/18/22 Status: Ordered Macrobid 100 mg oral capsule 100 mg = 1 cap, Oral, BID, # 14 cap, 0 Refill(s), Pharmacy: [facility] #[id number], 114.4, kg,09/13/23 15:23:00 EDT, Weight Dosing Start Date: 09/13/23 Stop Date: 09/20/23 Status: Ordered triamcinolone 0.1% topical cream 0 Refill(s), 0 Refill(s) Start Date: 03/25/23 Status: Ordered triamcinolone 0.1% topical cream 1 era, Topical, BID, # 454 g, 3 Refill(s), Pharmacy: [facility] #[id number], 165.1, cm, 09/26/23 12:01:00 EDT, Height, 113.85, [...] Diagnosis Body Site Status Mammogram 09/05/21 Completed Results Laboratory List Name Date .Urinalysis POCT 09/26/23 Urinalysis Microscopic 09/26/23 Most recent to oldest [Reference Range]: 1 UA WBC [0-3] 0-3 (09/26/23 1:00 PM) UA RBC [0-2] 3-5 (09/26/23 1:00 PM) UA Bacteria Rare /HPF (09/26/23 1:00 PM) UA Mucous None Seen /HPF (09/26/23 1:00 PM) UA Squam Epithelial [None Seen] Few *ABN* (09/26/23 1:00 PM) UA Culture Ind?. Not Indicated (09/26/23 1:00 PM) Method of Collect POC Clean Catch *NA* (09/26/23 1:00 PM) Specific Eleva, Ur POC <1.005 *NA* (09/26/23 1:00 PM) Specimen Color POC Yellow *NA* (09/26/23 1:00 PM) Glucose, Urine POC [Negative] Negative (09/26/23 1:00 PM) Bilirubin, Urine POC [Negative] Negative (09/26/23 1:00 PM) Ketones, Urine POC [Negative] Negative (09/26/23 1:00 PM) Blood, Urine POC [Negative] Trace *ABN* (09/26/23 1:00 PM) pH, Urine POC 6 *NA* (09/26/23 1:00 PM) Protein, Urine POC [Negative] Negative (09/26/23 1:00 PM) Urobilinogen, Urine POC Normal (09/26/23 1:00 PM) Nitrite, Urine POC [Negative] Negative (09/26/23 1:00 PM) Leuk Esterase, Urine POC [Negative] Nega tive (09/26/23 1:00 PM) Clarity, Urine POC [Clear] Clear (09/26/23 1:00 PM) Social History Social History Type Response Tobacco Former tobacco user Tobacco Use:. 1 Sex 1quit 1998 Patient Care team information Care Team Personnel Name: Sameera Hammond MD Position: Physician Member Role: Primary Care Physician Address: Address: [address] [address]- [place] Name: Jenny Jackson PA-C Position: No Access Member Role: Informed Provider Address: Address: [address] [place] [address]- Care Team Related Persons Name: MELANIE MATHIAS Name: HATTIE VELAZQUEZ Address: Home [address] [place], [place] [id number] Name: ATTILA DEL ROSARIO Address: [address] [place], [place] [id number]
--- OUTSIDE RECORDS SUMMARY | 2024-03-20 18:45 | XMS_ITS | Continuity of Care Document ---
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 Name Role Phone Stephany, Sameera Naomi Primary Care Physician Encounter [facility] Date(s): 09/13/23 - 09/13/23 [facility] [address] [place] [address] Discharge Disposition: Home or Self Care Attending Physician: Leandro Crowe Admitting Physician: Leandro Crowe Referring Physician: Leandro Crowe Assessment and Plan Future Appointments Future Scheduled Tests Laboratory* Urinalysis Notify Lab 09/13/23 Medications Macrobid 100 mg oral capsule 100 mg = 1 cap, Oral, BID, # 14 cap, 0 Refill(s), Pharmacy: [facility] #[id number], 114.4, kg,09/13/23 15:23:00 EDT, Weight Dosing Start Date: 09/13/23 Stop Date: 09/20/23 Status: Ordered Results Laboratory List Name Date Comprehensive Metabolic Panel (CMP) Hemoglobin A1c 09/13/23 TSH w/ Rflx to Free T4 09/13/23 Most recent to oldest [Reference Range]: 1 BUN [7-18 mg/dL] 14 mg/dL (09/13/23 3:48 PM) Glucose Level [74-106 mg/dL] 84 mg/dL (09/13/23 3:48 PM) Potassium Level [3.5-5.1 mmol/L] 4.0 mmo l/L (09/13/23 3:48 PM) AST [15-37 unit/L] 20 unit/L (09/13/23 3:48 PM) ALT [14-59 unit/L] 42 unit/L (09/13/23 3:48 PM) Sodium Level [136-145 mmol/L] 139 mmol/L (09/13/23 3:48 PM) Calcium Level [8.5-10.1 mg/dL] 8.7 mg/dL (09/13/23 3:48 PM) Albumin Level [3.4-5.0 g/dL] 3.4 g/dL (09/13/23 3:48 PM) Protein Total [6.4-8.2 g/dL] 6.6 g/dL (09/13/23 3:48 PM) Bilirubin Total [0.2-1.0 mg/dL] 0.3 mg/d L (09/13/23 3:48 PM) Alk Phos [46-146 unit/L] 96 unit/L (09/13/23 3:48 PM) CO2 [21-32 mmol/L] 26 mmol/L (09/13/23 3:48 PM) TSH [0.358-3.740 mcIntlUnit/mL] 1.279 mc IntlUnit/mL (09/13/23 3:48 PM) eGFR Non-AA [>=60] 110 (09/13/23 3:48 PM) eGFR AA [>=60] 110 (09/13/23 3:48 PM) Hemoglobin A1c [4.0-5.6 %] 5.2 % 1 (09/13/23 3:48 PM) Chloride Level [98-107 mmol/L] 102 mmol/ L (09/13/23 3:48 PM) Creatinine Level [0.55-1.02 mg/dL] 0.68 mg/dL (09/13/23 3:48 PM) 1Interpretive Data: New test method effective 06-07-23. Establishment of new HA1c baseline is recommended. The following A1c interpretive data reflect the 2017 [place] [employer] (ADA) guidelinesand will be reported with each A1c result: Normal: <5.7% Prediabetes: 5.7 - 6.4% Diagnostic for diabetes (if confirmed): ???6.5% Social History Social History Type Response Tobacco Former tobacco user Tobacco Use:. Sex Patient Care team information Care Team Personnel Name: Sameera Hammond MD Position: Physician Member Role: Primary Care Physician Address: Address: [address] [place] [address]- Name: Jenny Jackson PA-C Position: No Access Member Role: Informed Provider Address: Address: [address] [place] [id number]- Care Team Related Persons Name: MEY MELANIE Name: HATTIE VELAZQUEZ Address: Home [address] [place], [place] [phone] Name: ATTILA DEL ROSARIO Address: [address] [place] [address] Name: ATTILA DEL ROSRAIO Address: [address] [place], [place] [id number]
[2024-03-20 19:36] LABS: Anion Gap 8.2 mmol/L (3-11); BUN 16 mg/dL (7-18); CO2 29.8 mmol/L (21.0-32.0); CREATININE 0.8 mg/dL (0.55-1.02); Calcium 9.1 mg/dL (8.5-10.1); Chloride 104 mmol/L (98-107); Estimated GFR 92.54 (mL/min/1.73m2); Glucose 101 mg/dL (74-106); Potassium 3.6 mmol/L (3.5-5.1); Sodium 142 mmol/L (136-145)
== END 2024-03-20 18:43 | disposition home or self-care (01) ==
LOC: NCHCN 18:42
PROVIDERS: Visit Provider Nurse Practitioner Family
DX: I10 Essential (primary) hypertension (principal)
CPT/HCPCS: 80048